=== PATIENT | female | born 1940 ===

== ENCOUNTER 2017-03-30 22:53 | Inpatient (IN) | payer MEDICARE ==
[~2017-03-30] VITALS: Ht 177.8 cm; Wt 138.6 kg
[2017-03-31 00:31] VITALS: BP 150/62; BMI 43.9
[2017-03-31] MEDS ORDERED: LEXAPRO20 MG PO (00:51)
[2017-03-31] MEDS ORDERED: REMERON45 MG PO (00:52)
[2017-03-31] MEDS ORDERED: ROBAXIN500 MG PO (00:53)
[2017-03-31] MEDS ORDERED: DITROPAN X10 MG/BOTT PO (00:54)
[2017-03-31] MEDS ORDERED: HYDROCODON-ACE1 EAC7 PO (00:55)
[2017-03-31] MEDS ORDERED: XANAX1 MG PO (00:56)
[2017-03-31] MEDS ORDERED: PROAIR HFA8.5 GM INH (00:59)
--- NOTE | 2017-03-31 01:23 | NUR ---
PATIENT ARRIVE VIA EMS ACCOMPANIED BY SON AND HIS , CODE STATUS IS FULL CODE, CODE WORD IS RENETTA, CALM AND CONSENTS SIGNED, VALUABLES SENT HOME WITH FAMILY, ALERT AND ORIENTED, AMBULATES WITH WALKER, CONTRACTS FOR SAFETY.
[2017-03-31 06:27] LABS: BASOPHILS 0.2 % (0-2); EOSINOPHILS 2.9 % (0-7); HEMOGLOBIN 14.9 g/dL (12-16); IMMATURE GRANULOCYTES 0.3 % (0-5); LYMPHOCYTES 33.4 % (15-50); MCH 31.4 pg (26.0-34.0); MCHC 32.4 g/dL (31.0-37.0); MEAN PLATELET VOLUME 11.5 fL (7.4-10.4); MONOCYTES 11.4 % (2-11); NEUTROPHILS 51.8 % (40-80); RBC 4.74 10x6/uL (4.00-5.40); RDW 12.3 % (11.5-14.5); WBC 11.5 10x3/uL (4.8-10.8)
[2017-03-31 06:29] LABS: PLATELET COUNT 221 10x3/uL (130-400)
[2017-03-31 07:06] LABS: ALBUMIN 3.1 g/dL (3.4-5.0); ANION GAP 15.8 mmol/L (8-16); BILIRUBIN - TOTAL 0.59 mg/dL (0.2-1.3); CARBON DIOXIDE 25.5 mmol/L (21.0-32.0); CHOL - HDL RATIO 4.1 ratio (2.3-4.1); CREATININE - SERUM 1.1 mg/dL (0.6-1.3); LDL-HDL RATIO 2.4 ratio (1.5-3.5); POTASSIUM - SERUM 4.3 mmol/L (3.5-5.1); PROTEIN - SERUM 7.6 g/dL (6.4-8.2); THYROID STIMULATING HORMONE 4.73 uIU/mL (0.36-3.74)
[2017-03-31 07:17] LABS: HEMOGLOBIN A1C 6.9 % (4.8-6.0)
--- NOTE | 2017-03-31 07:35 | NUR ---
PATIENT'S DAUGHTER CALLED TO CHECK ON HER DAD AND SHE DID PROVIDE A CODE WORD JASIEL, DID LET HER KNOW WHY HE IS HERE AND EXPLAINED TO HER THAT THE HIM SPECIALIST WILL CALL HER AT THE BEGINNING OF THE WEEK.
[2017-03-31 09:47] VITALS: BMI 43.9
--- NOTE | 2017-03-31 11:25 | NUR ---
B) PATIENT DID SEE DR. BERGMAN AND DID GIVE HIM A HISTORY. HE SAID HE WOULD TRY TO HELP HER BY CHANGING SOME OF HER MEDS. PATIENT VERBALIZED UNDERSTANDING. PATIENT IS BLUNTED, BUT SHE IS REACTIVE AT TIMES. SHE DOES INTERACT WITH STAFF. PATIENT CAN WALK SHORT DISTANCES, BUT NEEDS A WALKER AND A T TIMES REQUESTS A W/C. I) PROVIDE PRESCRIBED MEDS, ENCOURAGE GROUPS AND ACTIVITIES. R) PATIENT IS DOING ACTIVITIES CURRENTLY, NO VERBALIZATION OF S.I. AT THIS TIME. P) CONTINUE POC.
[2017-03-31 11:52] VITALS: BP 170/64
[2017-03-31 13:41] LABS: APPEARANCE HAZY (CLEAR); BILIRUBIN NEGATIVE (NEGATIVE); COLOR YELLOW (YELLOW); GLUCOSE NEGATIVE (NEGATIVE); KETONE NEGATIVE (NEGATIVE); NITRITE NEGATIVE (NEGATIVE); PROTEIN NEGATIVE (NEGATIVE); UROBILINOGEN NORMAL (NORMAL)
[2017-03-31 13:47] LABS: BACTERIA MODERATE /hpf (NONE SEEN); EPITHELIAL CELLS 0-5 /hpf (0-5)
--- NOTE | 2017-03-31 19:28 | PSY ---
PATIENT NAME:MAJOR HUSSEIN MEDICAL RECORD: [id number] : 44 LOCATION:[facility] ADMISSION DATE: 03/30/17 ACCOUNT: [id number] PSYCHIATRIC EVALUATION DATE OF EVALUATION: 03/31/17 IDENTIFYING DATA: The patient is 76 years old and she is admitted to the hospital on a voluntary basis. CHIEF COMPLAINT: "I just can't take it anymore." HISTORY OF PRESENT ILLNESS: The patient comes to us from the [facility] Emergency Room. She presented there with suicidal thoughts. She apparently was threatening to kill herself to her family and had been holding a pencil to her throat and threatening to stab herself. She says that she is very frustrated and endorses a lot of neurovegetative depressive symptoms. She also says that she wishes she were . She relates the current stressors to family problems. She says that she is unhappy with her current situation and does not know how to fix it. Apparently, she is living in a house that is more than she can manage, but there are conflicts about selling it or repairing it before selling it and she feels overwhelmed. She recently did go to an assisted living center, but did not like it there, so she is now doubly confused about her future and where she can live and be comfortable and happy. She denies drug or alcohol abuse. She denies thoughts of harming others and she denies psychotic symptoms. PAST MEDICAL HISTORY: Significant for osteoarthritis and hypertension. PAST PSYCHIATRIC HISTORY: Significant for a longstanding problem with depression, for which she has been treated extensively on both an inpatient and outpatient basis. She has been on disability because of chronic depression since 1990. She since then has been treated on an outpatient basis by the [facility], but the psychiatrist that was seeing her left there several years ago and she has not been back. She has been seeing her primary care physician. FAMILY HISTORY: Significant for depression. ALLERGIES: VALIUM. CURRENT MEDICATIONS: Include Ditropan, Lexapro, Remeron, Blair, Xanax, Robaxin, and Ventolin. SOCIAL HISTORY: The patient was twice. She and her first in 1998. She subsequently her second who after a few years of marriage from pancreatic cancer. She has 2 adult children with her first . One lives [place] the [place] [facility], the other lives here in [place] with her. Apparently, he is disabled because of depression as well. There are conflicts that they are having and as mentioned, it is mostly related to what to do about the house that is too much for either of them to manage or afford according to the patient. She is a retired high school football coach. She does not drink to excess and has never been a user of drugs. She does not smoke cigarettes. MENTAL STATUS EXAMINATION: The patient is awake, alert and oriented to person, place, time and situation. Her mood is depressed. Her affect is constricted. Thought processes are circumstantial. Memory, concentration, and abstraction abilities are mildly impaired. She denies any active intent to harm herself or others as well as any overt psychotic symptoms. ASSETS: Supportive family members. LIABILITIES: Limited insight. DIAGNOSTIC IMPRESSION: AXIS I: Major depression, severe, recurrent without psychotic features. AXIS II: Deferred. AXIS III: Hypertension, chronic obstructive pulmonary disease, osteoarthritis. AXIS IV: Moderate stressors. AXIS V: Global assessment of functioning is 40. PLAN: At this time, the patient is admitted to the hospital secondary to depressive symptoms with suicidal thoughts. She is not out of touch with reality. She will be treated with antidepressant medications. Her long-term prognosis is guarded. Part of her aftercare plan will be following up with the psychiatrist since that is something she should have been doing all along. TRANSINT:[id number] Voice Confirmation ID: [id number] DOCUMENT ID: [id number] KARMEN BERGMAN MD at 1928 CC: [id number] DICTATION DATE: 03/31/17 1052 CARRY OUT CLERK: 03/31/17 1136 [facility] IN [facility] [address] [place] [address]
[2017-03-31 20:27] VITALS: BP 170/70
--- NOTE | 2017-04-01 05:42 | NUR ---
B) Patient alert and oriented X 4, no S.I. this shift contracts for safety, social with staff, I) Administeed scheduled medications, PRN Robaxin 500 mg given at 00:59 for back pain, R) Medication compliant, pleasant and friendly, P) Continue plan of care.
[2017-04-01 07:00] VITALS: BP 145/56
--- NOTE | 2017-04-01 10:44 | NUR ---
ADMINISTERED MORNING MEDICATIONS LATE DUE TO UNAVAILABLE PROFILE IN PYXSIS. PHARMACY WAS CALLED ON SITUATION AND RESOLVED FENG. PT ALERT AND ORIENTED X4. PLEASANT AFFECT, VERY AXIOUS. C/O ABDOMINAL PAIN 7/10 SHARP. NORCO 5MG X2 WAS ADMINISTERED PER REQUEST. NO S/SX OF ACUTE DISTRESS NOTED. WILL CONTINUE TO MONITOR
--- NOTE | 2017-04-01 17:34 | NUR ---
ALERT AND ORIENTED.AMBULATORY.DENIES THOUGHTS OF HARMING SELF NOW.PROMISED THIS NURSE TO TALK WITH ME IF SHE SHOULD START HAVING THOUGHTS OF SELF HARM AGAIN.IS COMPLIANT WITH STAFF AND MEDS.WILL CONTINUE WITH PLAN OF CARE,MONITOR FOR SAFETY AND CHANGES.
[2017-04-01 20:07] VITALS: BP 157/73
--- NOTE | 2017-04-01 20:10 | NUR ---
RECEIVED IN BEDROOM. RESTING IN BED WITH EYES OPEN. READING A BOOK. CALM AND COOPERATIVE WITH CARE AND ASSESSMENTS. DENIES THOUGHTS OF SELF HARM. ENCOURAGE TO EXPRESS NEEDS. CONTINUE PLAN OF CARE
[2017-04-02 07:00] VITALS: BP 122/98
[2017-04-02 08:09] LABS: VITAMIN D 25 HYDROXY 24.5 ng/mL (30.0-100.0)
--- NOTE | 2017-04-02 09:24 | NUR ---
PT GIVEN 2 NORCO 10 FOR PAIN ALL OVER PER DR ORDER PT TEARFUL SAYING SHE IS HURTING AND YUN PATTED HER ON THE BACK AND IT HURT WILL MONITER
[2017-04-02 12:12] LABS: FOLATE (FOLIC ACID) - SERUM 14.3 ng/mL (>3.0)
--- NOTE | 2017-04-02 13:14 | NUR ---
PT VERY FRUSTATED THAT SHE WILL NOT BE GOING HOME TILL TOMMORROW QUESTIONING WHO AND WHO CANT DO DISCHARGES AND ACTING RUDE TOWARDS STAFF WILL MONITER
--- NOTE | 2017-04-02 14:12 | PN ---
PATIENT:MAJOR HUSSEIN MEDICAL RECORD: [id number] LOCATION:[facility] ADMISSION DATE: 03/30/17 PROGRESS NOTE DATE OF SERVICE: 04/01/2017 SUBJECTIVE: The patient's case was discussed with staff. She has no new complaint. OBJECTIVE: The patient is in good behavioral control with limited insight about her condition. She generally tolerates her medicines well. She has no active suicidal thoughts. ASSESSMENT: No change in diagnoses. PLAN: Current medicines have been reviewed and will be maintained. The patient is gradually being tapered off of Lexapro and will be started on Effexor. Her long-term prognosis is guarded. TRANSINT:[id number] Voice Confirmation ID: [id number] DOCUMENT ID: [id number] KARMEN BERGMAN MD at 1412 CC: [id number] DICTATION DATE: 04/01/17 1109 SHADOWGRAPH OPERATOR: 04/01/17 1338 ADM IN [facility] [address] [place] [address]
[2017-04-02 15:08] VITALS: Ht 177.8 cm; Wt 138.6 kg
--- NOTE | 2017-04-02 15:12 | NUR ---
PT CONTINUES TO BE TEARFUL AND WITHDRAWN. PT DOES DENY SUICIDAL IDEATION BUT EXPRESSES SEVERE DEPRESSION. COPING SKILLS REVIEWED WITH HER BUT PT IS PASSIVE ABOUT USING THEM. SHE MAKES EXCUSES TO WHY THE COPING SKILLS WILL NOT WORK. ENCOURAGED PT TO TRY TO USE THEM. FLAT AFFECT NOTED WITH POOR EYE CONTACT. FALL PRECUATIONS MAINTAINED. WILL CONTINUE TO MONITOR AND CONTINUE WITH PLAN OF CARE.
--- NOTE | 2017-04-03 02:21 | NUR ---
RECEIVED IN BEDROOM. RESTING IN BED WITH EYES CLOSED. CALM AND COOPERATIVE WITH CARE AND ASSESSMENTS. DENIES THOUGHTS OF SELF HARM. ENCOURAGE TO EXPRESS NEEDS. RESTING IN BED EYES CLOSED AT THIS TIME. CONTINUE PLAN OF CARE
[2017-04-03 03:12] LABS: RAPID PLASMA REAGIN Non Reactive (Non Reactive)
[2017-04-03 07:00] VITALS: BP 227/95
--- NOTE | 2017-04-03 12:10 | NUR ---
PATIENT C/O PAIN AND DIARRHEA, DID PROVIDE HER A ROBAXIN AND A LOPERIMIDE. SEE MAR.
--- NOTE | 2017-04-03 13:03 | NUR ---
B) PATIENT IS CALM AND POLITE, SHE HAS NOT MADE ANY MENTION OF SUICIDE. PATIENT CAN AMBULATE INDEPENDENTLY WITH A WALKER. I) PROVIDE PRESCRIBED MEDS. R) PATIENT IS COMPLIANT WITH MEDS. P) CONTINUE POC.
--- NOTE | 2017-04-03 13:24 | PN ---
PATIENT:MAJOR HUSSEIN MEDICAL RECORD: [id number] LOCATION:[facility] [place] ADMISSION DATE: 03/30/17 PROGRESS NOTE DATE OF SERVICE: 04/02/2017 SUBJECTIVE: The patient's case was discussed with staff. She has no new complaint. OBJECTIVE: The patient denies intent to harm herself or others. She tolerates her medicines well. Eye contact is poor. ASSESSMENT: No change in diagnoses. PLAN: Brief supportive and educational interventions were made. The patient is no longer having suicidal thoughts. She still endorses a lot of depressive symptoms. I have tapered her off of Lexapro and will increase the dose of her Effexor. TRANSINT:[id number] Voice Confirmation ID: [id number] DOCUMENT ID: [id number] KARMEN BERGMAN MD at 1324 CC: [id number] DICTATION DATE: 04/02/17 1421 RAISIN WASHER: 04/02/17 1550 ADM IN [place] [id number] [place] [address]
[2017-04-03] MEDS ORDERED: LEVAQUIN750 MG PO (13:46)
[2017-04-03] MEDS ORDERED: LISINOPRIL10 MG PO (13:46)
[2017-04-03] MEDS ORDERED: EFFEXOR37.5 MG PO (13:46)
[2017-04-03] MEDS ORDERED: FLORAJEN3 CAPS460 MG PO (13:47)
[2017-04-03] MEDS ORDERED: LIDODERM 5 %1 PATCH TRANSDERM (13:47)
[2017-04-03] MEDS ORDERED: LOPERAMIDE HCL2 MG PO (13:47)
--- NOTE | 2017-04-03 15:00 | NUR ---
NO C/O PAIN OR DIARRHEA.
--- NOTE | 2017-04-03 17:24 | NUR ---
PATIENT C/O DIARRHEA AGAIN, DID PROVIDE HER A LOPERIMIDE, SEE MAR.
--- NOTE | 2017-04-04 00:11 | NUR ---
RECEIVED IN BEDROOM. RESTING IN BED WITH EYES CLOSED. CALM AND COOPERATIVE WITH CARE AND ASSESSMENTS. DENIES THOUGHTS OF SELF HARM. ENCOURAGE TO EXPRESS NEEDS. RESTING IN BED WITH EYES CLOSED AT THIS TIME. CONTINUE PLAN OF CARE
[2017-04-04 10:30] VITALS: BP 136/84
--- NOTE | 2017-04-04 17:00 | PN ---
PATIENT:MAJOR HUSSEIN MEDICAL RECORD: [id number] LOCATION:[facility] ADMISSION DATE: 03/30/17 PROGRESS NOTE DATE OF SERVICE: 04/03/2017 SUBJECTIVE: The patient's case was discussed with staff. She has no new complaint. OBJECTIVE: The patient denies intent to harm herself or others. She generally tolerates her medicines well. ASSESSMENT: No change in diagnoses. PLAN: The patient is anxious to be discharged from the hospital. She says that she is no longer suicidal. Her long-term prognosis is guarded. I do anticipate transitioning her out of the hospital tomorrow if this level of improvement is maintained. Her long-term prognosis is guarded. [place] [facility] TRANSINT:[id number] Voice Confirmation ID: [id number] DOCUMENT ID: [id number] KARMEN BERGMAN MD at 1700 CC: [id number] DICTATION DATE: 04/03/17 1349 STAFFING MANAGER: 04/03/17 [address] [facility] [address] [place] [address]
--- NOTE | 2017-04-06 10:05 | DS ---
PATIENT:MJAOR HUSSEIN :44 MEDICAL RECORD: [id number] DISCHARGE SUMMARY ADMISSION DATE: 03/30/17 DISCHARGE DATE: 04/04/17 IDENTIFYING DATA: The patient is 76 years old and she is admitted to the hospital on a voluntary basis. CHIEF COMPLAINT: "I just can't take it anymore." HISTORY OF PRESENT ILLNESS: The patient initially presented to the Emergency Room at [facility]. She was reporting suicidal thoughts. She was cleared by them both medically and neurologically and then transferred to us for treatment of her underlying psychiatric condition. She had been threatening to kill herself to her family and had been holding a pencil to her throat and threatening to stab herself. She says she is very frustrated and endorses numerous neurovegetative depressive symptoms. She said that she wished she were . She relates numerous family stressors and is unhappy with her current situation, but is unclear about how to fix it. She apparently has an adult son who is disabled and lives with her and he is trying to direct what she should do financially and she finds this frustrating. HOSPITAL COURSE: The patient was admitted to the hospital and fully evaluated from both a medical, psychological, and social standpoint. She was treated with both antidepressant and mood stabilizing medications and did show improvement. She was subsequently discharged and was to have follow up with her primary care physician and an outpatient behavioral program. She was not acutely dangerous at the time of discharge. DISCHARGE DIAGNOSES: AXIS I: Major depression, severe, recurrent without psychotic features. AXIS II: Deferred. AXIS III: Hypertension, chronic obstructive pulmonary disease, osteoarthritis. AXIS IV: Moderate stressors. AXIS V: Global assessment of functioning is 50. PLAN: At the time of discharge, the patient was in good behavioral control with limited insight about her condition. She was tolerating her medications well. Her long-term prognosis is guarded. As mentioned above followup is to be with the mental health program. TRANSINT:[id number] Voice Confirmation ID: [id number] DOCUMENT ID: [id number] KARMEN BERGMAN MD at 1005 CC: [id number] DICTATION DATE: 04/05/17 1418 SCIENTIFIC PUBLICATIONS EDITOR: 04/06/17 0955 DIS IN 04/04/17 [place] [id number] [place], [place] [id number]
== END 2017-04-04 14:50 | disposition home or self-care (01) | DRG 885 ==
LOC: D.PSYCH 22:53
PROVIDERS: ADMIT Psychiatry & Neurology Psychiatry
DX: F33.2 Major depressive disorder, recurrent severe without psychotic features (principal); N39.0 Urinary tract infection, site not specified; I10 Essential (primary) hypertension; J44.9 Chronic obstructive pulmonary disease, unspecified; M19.90 Unspecified osteoarthritis, unspecified site; N32.81 Overactive bladder; E78.5 Hyperlipidemia, unspecified; M54.5 Low back pain; G89.29 Other chronic pain; E66.9 Obesity, unspecified; M62.838 Other muscle spasm; B96.1 Klebsiella pneumoniae [K. pneumoniae] as the cause of diseases classified elsewhere; E55.9 Vitamin D deficiency, unspecified; K52.9 Noninfective gastroenteritis and colitis, unspecified